=== PATIENT | female | born 1990 | race Caucasian/White ===

== ENCOUNTER 2021-08-31 15:56 | Emergency (ER) | payer MEDICAID ==
[~2021-08-31] VITALS: Ht 157.5 cm; Wt 59.1 kg
[2021-08-31 16:41] VITALS: BP 148/86
== END 2021-08-31 19:15 | disposition home or self-care (01) ==
LOC: ER 15:57
DX: Z13.89 Encounter for screening for other disorder (principal); R22.0 Localized swelling, mass and lump, head; G43.909 Migraine, unspecified, not intractable, without status migrainosus
CPT/HCPCS: 99281

== ENCOUNTER 2022-11-13 04:43 | Emergency (ER) | payer OTHER, MEDICAID ==
[~2022-11-13] VITALS: Ht 157.5 cm; Wt 59.1 kg
[2022-11-13 04:51] VITALS: BP 113/82; PULSE 90; RESP 14; O2SAT 98
[2022-11-13 05:24] LABS: URINE HCG NEGATIVE (NEG)
[2022-11-13 05:27] LABS: BILIRUBIN,URINE NEGATIVE (Neg); CLARITY,URINE CLOUDY (Clear); COLOR,URINE YELLOW (Yellow); GLUCOSE, URINE NEGATIVE (Neg); KETONES,URINE NEGATIVE (Neg); LEUKOCYTE ESTERASE ,URINE SMALL (Neg); NITRITES, URINE POSITIVE (Neg); OCCULT BLOOD,URINE LARGE (Neg); PROTEIN,URINE 100 mg/dl (Neg); UROBILINOGEN,URINE 0.2 E.U/dL (0.2-1.0)
[2022-11-13 05:41] LABS: UA COLLECTION TYPE CLN CATCH MIDSTREAM
[2022-11-13 05:43] LABS: BACTERIA,URINE 4+ /HPF (Neg); MUCUS STRANDS FEW /LPF (Neg); RBC,URINE TNTC /HPF (0-2); SQUAMOUS EPITHELIAL CELL,UR FEW /LPF (FEW); WBC,URINE TNTC /HPF (0-4)
[2022-11-13] MEDS ORDERED: SULF1TAB45 PO (05:44)
[2022-11-13 05:55] VITALS: TEMP 97.9
== END 2022-11-13 05:58 | disposition home or self-care (01) ==
LOC: ER 04:44
DX: N39.0 Urinary tract infection, site not specified (principal); G43.909 Migraine, unspecified, not intractable, without status migrainosus; Z79.899 Other long term (current) drug therapy
CPT/HCPCS: 81001; 81025; 82948; 87077; 87088; 87186; 99283

== ENCOUNTER 2023-08-02 02:45 | Emergency (ER) | payer OTHER, MEDICAID ==
[~2023-08-02] VITALS: Ht 157.5 cm; Wt 50.0 kg
[2023-08-02 02:50] VITALS: TEMP 98.2
[2023-08-02] MEDS ORDERED: NO HOME MEDS (02:56)
[2023-08-02] MEDS: metroNIDAZOLE 500mg tablet PO ONE (03:47)
[2023-08-02] MEDS: azithromycin 250mg tablet PO ONE (03:47)
[2023-08-02] MEDS: CefTRIAXone 1000mg IM Kit (w/lidocaine diluent) IM ONE (03:49)
[2023-08-02 04:04] LABS: BILIRUBIN,URINE NEGATIVE (Neg); CLARITY,URINE CLOUDY (Clear); COLOR,URINE YELLOW (Yellow); GLUCOSE, URINE NEGATIVE (Neg); KETONES,URINE NEGATIVE (Neg); LEUKOCYTE ESTERASE ,URINE LARGE (Neg); NITRITES, URINE NEGATIVE (Neg); OCCULT BLOOD,URINE TRACE-INTACT (Neg); PROTEIN,URINE NEGATIVE (Neg); UROBILINOGEN,URINE 0.2 E.U/dL (0.2-1.0)
[2023-08-02 04:24] LABS: UA COLLECTION TYPE CLN CATCH MIDSTREAM
[2023-08-02 04:30] LABS: BACTERIA,URINE 2+ /HPF (Neg); MUCUS STRANDS FEW /LPF (Neg); SQUAMOUS EPITHELIAL CELL,UR MODERATE /LPF (FEW); WBC,URINE 50-100 /HPF (0-4)
[2023-08-02 04:31] LABS: RENAL CELLS, URINE FEW /HPF; TRANSITIONAL EPI CELLS,URINE FEW /HPF
[2023-08-02 05:08] VITALS: BP 116/77; PULSE 95; RESP 16; O2SAT 99
[2023-08-04 11:42] LABS: CHLAMYDIA TRACHOMATIS, NAA Negative (Negative)
== END 2023-08-02 05:06 | disposition home or self-care (01) ==
LOC: ER 02:46
DX: N76.0 Acute vaginitis (principal)
CPT/HCPCS: 36415; 81001; 87491; 87591; 96372; 99283; J0696